=== PATIENT | female | born 1995 | race Caucasian/White ===

== ENCOUNTER 2017-07-23 01:16 | Emergency (ER) | payer OTHER ==
[~2017-07-23] VITALS: Ht 165.1 cm; Wt 53.0 kg
[2017-07-23 01:20] VITALS: TEMP 36.7; Ht 165.1 cm; Wt 53.0 kg
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
[2017-07-23 02:10] LABS: CALCIUM 8.7 mg/dl (8.5-10.1); CREATININE 0.72 mg/dl (0.60-1.20); POTASSIUM 3.5 mmol/L (3.5-5.1)
[2017-07-23 07:45] VITALS: BP 120/79; PULSE 89; O2SAT 96
== END 2017-07-23 08:00 | disposition home or self-care (01) ==
LOC: EDBD 01:16 → C.EDB 01:18
DX: F10.129 Alcohol abuse with intoxication, unspecified (principal)